=== PATIENT | female | born 1985 | race Caucasian/White ===

== ENCOUNTER 2017-12-17 15:38 | Outpatient (REF) | payer BC, MEDICAID, SELFPAY ==
--- NOTE | 2017-12-17 15:15 | PAPFT_PTH ---
PATIENT: Jazzy Pedraza LOC: [facility] U#:[id number] AGE/SX: 32/F ROOM: RE12/17/[address]: DENICE Fletcher : 1985 BED: DIS: 12/17/2017 SPEC #: [id number] RECD: 12/18/17 12:50 STATUS: DEEPAKShadi REMichele #: [id number] KATHRINE: 12/17/17 15:[address]: Luba Azar DEPT: [facility] Cytology RECD BY: Torrie Blevins ENTERED: 12/18/17 12:51 SP TYPE: PAPFT OTHR DR: Lait Allred Tissues: 1 - CX/ENDOCX FOR PAP SMEARS Procedures: PAP THIN PREP/[facility] Screening HPV DNA PROBE Comments: [id number]
[2017-12-19 13:59] LABS: Chlamydia Result Negative; GC Result Negative; Specimen Description CERVIX
== END 2017-12-17 15:39 ==
LOC: LBN 15:38
PROVIDERS: PCP Advanced Practice Midwife; Visit Provider Nurse Practitioner Family
DX: Z11.3 Encounter for screening for infections with a predominantly sexual mode of transmission (principal); Z12.4 Encounter for screening for malignant neoplasm of cervix; Z11.51 Encounter for screening for human papillomavirus (HPV)
CPT/HCPCS: 87491; 87591; 88142; 87624

== ENCOUNTER 2018-01-28 15:45 | Outpatient (CLI) | payer BC, MEDICAID, SELFPAY ==
[2018-01-28 17:35] LABS: TSH (W/Ref FT4) 0.01 uIU/mL (0.358-3.74)
[2018-01-28 17:56] LABS: FREE T4 3.11 ng/dL (0.76-1.46)
== END 2018-01-28 16:05 ==
PROVIDERS: Visit Provider Advanced Practice Midwife
DX: R61 Generalized hyperhidrosis (principal)
CPT/HCPCS: 36415; 84439; 84443

== ENCOUNTER 2018-03-25 17:59 | Outpatient (REF) | payer BC, SELFPAY ==
[2018-03-25 21:41] LABS: Anion Gap 8.5 mmol/L (3-11); BUN 13 mg/dL (7-18); CO2 27.5 mmol/L (21.0-32.0); CREATININE 0.69 mg/dL (0.55-1.02); Calcium 9.4 mg/dL (8.5-10.1); Chloride 103 mmol/L (98-107); Glucose 108 mg/dL (70-100); Potassium 3.9 mmol/L (3.5-5.1); Sodium 139 mmol/L (136-145); TSH (W/Ref FT4) 4.64 uIU/mL (0.358-3.74)
[2018-03-25 22:09] LABS: FREE T4 0.61 ng/dL (0.76-1.46)
== END 2018-03-25 18:19 ==
LOC: NCHCN 17:59
PROVIDERS: PCP Nurse Practitioner Family; Visit Provider Nurse Practitioner Family
DX: R00.2 Palpitations (principal); R61 Generalized hyperhidrosis
CPT/HCPCS: 80048; 84439; 84443

== ENCOUNTER 2018-05-20 21:00 | Outpatient (REF) | payer BC, SELFPAY ==
[2018-05-20 23:11] LABS: FREE T4 1.19 ng/dL (0.76-1.46); TSH 0.64 uIU/mL (0.358-3.74)
== END 2018-05-20 21:20 ==
LOC: NCHCN 21:00
PROVIDERS: PCP Nurse Practitioner Family; Visit Provider Nurse Practitioner
DX: E03.9 Hypothyroidism, unspecified (principal)
CPT/HCPCS: 84439; 84443

== ENCOUNTER 2018-10-14 15:00 | Outpatient (REF) | payer BC, SELFPAY ==
[2018-10-14 22:11] LABS: TSH (W/Ref FT4) 0.59 uIU/mL (0.358-3.74)
== END 2018-10-14 15:20 ==
LOC: NCHCN 15:00
PROVIDERS: PCP Nurse Practitioner Family; Visit Provider Nurse Practitioner Family
DX: E03.9 Hypothyroidism, unspecified (principal)
CPT/HCPCS: 84443

== ENCOUNTER 2019-12-18 12:02 | Outpatient (REF) | payer SELFPAY ==
[2019-12-18 21:05] LABS: FREE T4 1.19 ng/dL (0.76-1.46); TSH 0.96 uIU/mL (0.36-3.74)
== END 2019-12-18 12:22 ==
LOC: NCHCN 12:02
PROVIDERS: PCP Nurse Practitioner Family; Visit Provider Internal Medicine
DX: E03.9 Hypothyroidism, unspecified (principal)
CPT/HCPCS: 84439; 84443

== ENCOUNTER 2021-02-28 13:28 | Outpatient (REF) | payer OTHER, SELFPAY ==
[2021-02-28 21:41] LABS: TSH (W/Ref FT4) 0.32 uIU/mL (0.36-3.74)
[2021-02-28 21:59] LABS: FREE T4 1.09 ng/dL (0.76-1.46)
== END 2021-02-28 13:29 | disposition home or self-care (01) ==
LOC: NCHCN 13:28
PROVIDERS: PCP Nurse Practitioner Family; Visit Provider Nurse Practitioner Family
DX: E03.9 Hypothyroidism, unspecified (principal); F41.9 Anxiety disorder, unspecified; R00.2 Palpitations; K30 Functional dyspepsia
CPT/HCPCS: 84439; 84443

== ENCOUNTER 2021-05-16 17:04 | Outpatient (REF) | payer OTHER, SELFPAY ==
[2021-05-16 21:23] LABS: TSH (W/Ref FT4) 0.84 uIU/mL (0.36-3.74)
== END 2021-05-16 17:05 | disposition home or self-care (01) ==
LOC: NCHCN 17:04
PROVIDERS: PCP Nurse Practitioner Family; Visit Provider Nurse Practitioner Family
DX: E03.9 Hypothyroidism, unspecified (principal)
CPT/HCPCS: 84443

== ENCOUNTER 2021-08-31 08:31 | Outpatient (REF) | payer BC, SELFPAY ==
--- NOTE | 2021-08-31 07:45 | SKI_PTH ---
PATIENT: Jazzy Pedraza LOC: [facility] U#:[id number] AGE/SX: 36/F ROOM: RE08/31/[address]: Zachary Villalobos MD : 1985 BED: DIS: 08/31/2021 SPEC #: [id number] RECD: 08/31/21 17:51 STATUS: KINGS REQ #: [id number] KATHRINE: 08/31/21 07:[address]: Zachary Villalobos DEPT: Surgical Specimen RECD BY: Torrie Blevins ENTERED: 08/31/21 17:52 SP TYPE: GIGI ALEJO DR: Lela Milan Tissues: 1 - SKIN BIOPSY(SHAVE/PUNCH) Procedures: IMMUNOPEROXIDASE STAIN SKIN LEVEL 4 MIB-1 IHC Semi Quantative % P16 IPEX Comments: [id number]
== END 2021-08-31 08:32 | disposition home or self-care (01) ==
LOC: LBN 08:31
PROVIDERS: PCP Nurse Practitioner Family; Visit Provider Otolaryngology
DX: H93.8X2 Other specified disorders of left ear (principal)
CPT/HCPCS: 88342; 88360; 88305; 88361

== ENCOUNTER 2022-03-06 15:17 | Outpatient (REF) | payer BC, SELFPAY ==
[2022-03-06 16:06] LABS: TSH (W/Ref FT4) 0.19 uIU/mL (0.36-3.74)
[2022-03-06 16:32] LABS: FREE T4 1.24 ng/dL (0.76-1.46)
== END 2022-03-06 15:18 | disposition home or self-care (01) ==
LOC: NCHCN 15:17
PROVIDERS: Visit Provider Nurse Practitioner Family
DX: E03.9 Hypothyroidism, unspecified (principal); E66.9 Obesity, unspecified; R51.9 Headache, unspecified; K30 Functional dyspepsia; J30.2 Other seasonal allergic rhinitis; F41.9 Anxiety disorder, unspecified
CPT/HCPCS: 84439; 84443

== ENCOUNTER 2022-04-21 16:12 | Outpatient (REF) | payer BC, SELFPAY ==
[2022-04-21 21:34] LABS: TSH (W/Ref FT4) 0.99 uIU/mL (0.36-3.74)
== END 2022-04-21 16:13 | disposition home or self-care (01) ==
LOC: NCHCN 16:12
PROVIDERS: Visit Provider Nurse Practitioner Family
DX: E03.9 Hypothyroidism, unspecified (principal); Z30.431 Encounter for routine checking of intrauterine contraceptive device
CPT/HCPCS: 84443

== ENCOUNTER 2023-03-06 16:18 | Outpatient (REF) | payer BC, SELFPAY ==
--- NOTE | 2023-03-06 15:15 | PAPFT_PTH ---
PATIENT: Jazzy Pedraza LOC: [facility] U#:[id number] AGE/SX: 37/F ROOM: RE03/06/[address]: Ya Gómez : 1985 BED: DIS: 03/06/2023 SPEC #: [id number] RECD: 03/07/23 13:10 STATUS: KINGS REMichele #: [id number] KATHRINE: 03/06/23 15:[address]: Ya Gómez DEPT: [facility] Cytology RECD BY: Torrie Blevins Tissues: 1 - CX/ENDOCX FOR PAP SMEARS Procedures: PAP THIN PREP/[facility] Screening HPV DNA PROBE Comments: [id number]
[2023-03-06 21:31] LABS: TSH (W/Ref FT4) 0.64 uIU/mL (0.36-3.74)
== END 2023-03-06 16:19 | disposition home or self-care (01) ==
LOC: NCHCN 16:18
PROVIDERS: Visit Provider Nurse Practitioner Family
DX: Z12.4 Encounter for screening for malignant neoplasm of cervix (principal); Z11.51 Encounter for screening for human papillomavirus (HPV); E03.9 Hypothyroidism, unspecified
CPT/HCPCS: 88142; 84443; 87624

== ENCOUNTER 2023-05-11 13:25 | Outpatient (CLI) | payer BC, SELFPAY ==
[2023-05-11 12:40] LABS: ALT 18 U/L (14-59); AST 12 U/L (15-37); Albumin 3.7 g/dL (3.4-5.0); Alkaline Phosphatase 64 U/L (46-116); Anion Gap 4.4 mmol/L (3-11); BUN 7 mg/dL (7-18); Bilirubin, Total 0.4 mg/dL (0.2-1.0); CO2 30.6 mmol/L (21.0-32.0); CREATININE 0.7 mg/dL (0.55-1.02); Chloride 104 mmol/L (98-107); Estimated GFR 114.88 (mL/min/1.73m2); Glucose 121 mg/dL (74-106); Potassium 3.8 mmol/L (3.5-5.1); Sodium 139 mmol/L (136-145); Total Protein 7.2 g/dL (6.4-8.2)
== END 2023-05-11 13:26 | disposition home or self-care (01) ==
LOC: LBO 13:25
PROVIDERS: PCP Nurse Practitioner Family; Visit Provider Nurse Practitioner Family
DX: R10.32 Left lower quadrant pain (principal)
CPT/HCPCS: 36415; 80053

== ENCOUNTER 2024-03-21 22:48 | Outpatient (REF) | payer BC, SELFPAY ==
[2024-03-21 22:11] LABS: TSH (W/Ref FT4) 0.54 uIU/mL (0.36-3.74)
== END 2024-03-21 22:49 | disposition home or self-care (01) ==
LOC: NCHCN 22:48
PROVIDERS: PCP Nurse Practitioner Family; Visit Provider Nurse Practitioner Family
DX: E03.9 Hypothyroidism, unspecified (principal)
CPT/HCPCS: 84443

== ENCOUNTER 2025-03-27 14:09 | Outpatient (REF) | payer BC, SELFPAY ==
[2025-03-27 21:25] LABS: TSH (W/Ref FT4) 0.99 uIU/mL (0.55-4.78)
== END 2025-03-27 14:10 | disposition home or self-care (01) ==
LOC: NCHCN 14:09
PROVIDERS: PCP Nurse Practitioner Family; Visit Provider Nurse Practitioner Family
DX: E03.9 Hypothyroidism, unspecified (principal)
CPT/HCPCS: 84443

== ENCOUNTER 2025-04-03 12:14 | Outpatient (REF) | payer BC, SELFPAY | END 2025-04-03 12:15 | disposition home or self-care (01) | LOC: LBN 12:14 | PROVIDERS: PCP Nurse Practitioner Family; Visit Provider Physician Assistant Medical | DX: J02.9 Acute pharyngitis, unspecified (principal) | CPT/HCPCS: 87077; 87070 ==